=== PATIENT | female | born 1975 | race Caucasian/White ===

== ENCOUNTER 2020-12-08 08:49 | Emergency (ER) | payer BC ==
[~2020-12-08] VITALS: Ht 162.6 cm; Wt 77.1 kg
[2020-12-08 09:00] VITALS: BP_SYST 124
[2020-12-08] MEDS ORDERED: ONDANSETRON 4 MG ODT TAB PO ONE (09:15)
[2020-12-08] MEDS ORDERED: KETOROLAC TROMETHAMINE 60 MG/2 ML VIAL IM ONE (09:15)
[2020-12-08 10:03] LABS: BILIRUBIN,URINE NEGATIVE (NEGATIVE); CLARITY/URINE CLEAR (CLEAR); COLOR,URINE YELLOW (YELLOW); GLUCOSE,URINE NEGATIVE (NEGATIVE); KETONES,URINE TRACE (NEGATIVE); LEUKOCYTE ESTERASE ,URINE NEGATIVE (NEGATIVE); NITRITE, URINE NEGATIVE (NEGATIVE); PROTEIN URINE NEGATIVE (NEGATIVE); UROBILINOGEN,URINE 0.2 (0.2-1.0)
[2020-12-08 10:24] LABS: BLOOD, URINE TRACE (NEGATIVE)
[2020-12-08 10:28] LABS: BACTERIA,URINE None Seen /HPF (None Seen); CALCIUM OXALATE CRYSTALS,UR None Seen /HPF (None Seen); CALCIUM PHOSPHATE CRYSTALS,UR None Seen /HPF (None Seen); RBC,URINE 0-3 /HPF (0-3); TRICHOMONAS,URINE None Seen /HPF (None Seen); WBC,URINE NONE SEEN /HPF (0-3); YEAST,URINE None Seen /HPF (None Seen)
[2020-12-08 10:45] VITALS: BP_SYST 124
[2020-12-08] MEDS ORDERED: NAPR-1172 PO (10:52)
== END 2020-12-08 10:50 | disposition home or self-care (01) ==
LOC: SED 08:49
DX: S39.011A Strain of muscle, fascia and tendon of abdomen, initial encounter (principal); X58.XXXA Exposure to other specified factors, initial encounter; Y93.89 Activity, other specified; Y92.89 Other specified places as the place of occurrence of the external cause; Y99.8 Other external cause status
CPT/HCPCS: 81000; 96372; 99283; J1885; Q0162

== ENCOUNTER 2022-01-15 12:21 | Emergency (ER) | payer BC ==
[~2022-01-15] VITALS: Ht 162.6 cm; Wt 81.6 kg
[~2022-01-15 12:21] MED LIST: NAPR-1172 PO
[2022-01-15 12:22] VITALS: BP_SYST 149
--- NOTE | 2022-01-15 12:22 | NUR ---
Placed in room 2 . Placed on ekg monitor, blood pressure machine and pulse oximeter. To gown for exam. Side rails up. Report given to RANDOLPH SIMENTAL.
--- NOTE | 2022-01-15 12:27 | NUR ---
Patient arrived to ED 2 for Chest pain since saturday afternoon, that is "constant, and feel it more when moving around." Patient describes the chest pain as "someone's thumb pressing on heart." Patient is alert and oriented x4. Respiration even and unlabored. Patient took advil and naproxen yesterday day time over the counter to "see if it would help." Patient drove to hospital by herself. Vital signs stable. Dr. Senoir at bedside to [facility] patient.
[2022-01-15 13:02] LABS: BASOPHILS # (AUTO) 0.1 K/uL (0.0-0.2); EOSINOPHILS # (AUTO) 0.2 K/uL (0.0-0.4); EOSINOPHILS % (AUTO) 2.2 % (0.0-4.0); HEMOGLOBIN 13.5 g/dL (12.0-16.0); LYMPHOCYTES # (AUTO) 2.1 K/uL (1.0-5.5); LYMPHOCYTES % (AUTO) 23.1 % (20.5-51.5); MEAN CORPUSCULAR HEMOGLOBIN 31 pg (27-31); MEAN CORPUSCULAR HGB CONC 34 % (32-36); MEAN CORPUSCULAR VOLUME 91 fL (79.0-98.0); MONOCYTES # (AUTO) 0.6 K/uL (0.0-1.0); MONOCYTES % (AUTO) 6.4 % (1.7-9.3); NEUTROPHILS % (AUTO) 67.3 % (40.0-70.0); PLATELET COUNT (AUTO) 272 K/uL (130-430); RED CELL DISTRIBUTION WIDTH 12.6 % (9.0-15.0); WHITE BLOOD COUNT (AUTO) 8.9 K/uL (4.8-10.8)
[2022-01-15 13:11] LABS: ANION GAP 6 (5-15); CALCIUM 8.4 mg/dL (8.4-11.0); CHLORIDE 100 mmol/L (98-107); CREATININE 0.88 mg/dL (0.55-1.30); GFR AFRICAN AMERICAN 88 mL/min (>90); GLUCOSE 94 mg/dL (70-99); POTASSIUM 4.5 mmol/L (3.5-5.1); SODIUM SERUM 133 mmol/L (136-145); UREA NITROGEN, BLOOD 11 mg/dL (8-21)
[2022-01-15 13:19] LABS: ALANINE AMINOTRANSFERASE 36 U/L (12-78); ALBUMIN 3.7 g/dL (3.4-4.8); ASPARTATE AMINOTRANSFERASE 25 U/L (10-37); TOTAL BILIRUBIN 0.1 mg/dL (0.0-1.0)
[2022-01-15] MEDS ORDERED: IBUP-1969 PO (13:50)
--- NOTE | 2022-01-15 13:56 | NUR ---
Dr. Senior came to see patient.
--- NOTE | 2022-01-15 14:04 | NUR ---
Patient given written and verbal discharge instructions and verbalizes understanding. ER MD discussed with patient the results and treatment provided. Patient in stable condition. ID arm band removed. IV catheter removed intact and dressing applied, no active bleeding. Rx of Motrin given. Patient educated on pain management and to follow up with PMD. Pain Scale . Opportunity for questions provided and answered. Medication side effect fact sheet provided.
[2022-01-15 14:08] VITALS: BP_SYST 124
== END 2022-01-15 14:04 | disposition home or self-care (01) ==
LOC: SED 12:21
DX: R07.2 Precordial pain (principal); Z79.899 Other long term (current) drug therapy
CPT/HCPCS: 36415; 71045; 80053; 84484; 85025; 93005; 99285

== ENCOUNTER 2023-11-11 11:00 | Emergency (ER) | payer BC ==
[~2023-11-11] VITALS: Ht 162.6 cm; Wt 86.2 kg
[~2023-11-11 11:00] MED LIST changes: +IBUP-1969 PO
[2023-11-11 11:08] VITALS: BP_SYST 179; PULSE 85; RESP 18; TEMP 98.3; O2SAT 98
[2023-11-11 11:58] LABS: BASOPHILS # (AUTO) 0.1 K/uL (0.0-0.2); BASOPHILS % (AUTO) 0.9 % (0.0-2.0); EOSINOPHILS # (AUTO) 0.2 K/uL (0.0-0.4); HEMATOCRIT 42.1 % (36-48); HEMOGLOBIN 14.3 g/dL (12.0-16.0); LYMPHOCYTES # (AUTO) 2.5 K/uL (1.0-5.5); LYMPHOCYTES % (AUTO) 25.6 % (20.5-51.5); MEAN CORPUSCULAR HEMOGLOBIN 31 pg (27-31); MEAN CORPUSCULAR HGB CONC 34 % (32-36); MEAN CORPUSCULAR VOLUME 91 fL (79.0-98.0); MONOCYTES # (AUTO) 0.6 K/uL (0.0-1.0); MONOCYTES % (AUTO) 6.4 % (1.7-9.3); NEUTROPHILS # (AUTO) 6.3 K/uL (1.8-7.7); NEUTROPHILS % (AUTO) 65.1 % (40.0-70.0); PLATELET COUNT (AUTO) 331 K/uL (130-430); RED BLOOD CELL COUNT(AUTO) 4.61 MIL/uL (4.2-6.2); RED CELL DISTRIBUTION WIDTH 13.3 % (9.0-15.0); WHITE BLOOD COUNT (AUTO) 9.8 K/uL (4.8-10.8)
[2023-11-11 13:19] LABS: ANION GAP 7 (5-15); CALCIUM 9.1 mg/dL (8.4-11.0); CARBON DIOXIDE 26 mmol/L (23-29); CHLORIDE 103 mmol/L (98-107); CREATININE 0.85 mg/dL (0.55-1.30); GFR AFRICAN AMERICAN 91 mL/min (>90); GLUCOSE 94 mg/dL (74-106); POTASSIUM 4.3 mmol/L (3.5-5.1); SODIUM SERUM 136 mmol/L (136-145); UREA NITROGEN, BLOOD 15 mg/dL (8-21)
[2023-11-11 13:20] LABS: GFR NON AFRICAN-AMERICAN 75 mL/min (>90)
[2023-11-11] MEDS: ASPIRIN 325 MG TABLET PO ONE (13:33)
[2023-11-11] MEDS: NITROGLYCERIN 0.4 MG TAB.SUBL SL ONE (13:33)
[2023-11-11] MEDS ORDERED: ASPI-1393 PO (14:04)
[2023-11-11] MEDS ORDERED: NITSL SL (14:04)
[2023-11-11 20:30] VITALS: BP_SYST 142; PULSE 79; RESP 18; TEMP 98.5; O2SAT 97
== END 2023-11-11 14:12 | disposition home or self-care (01) ==
LOC: SED 11:00
DX: R07.89 Other chest pain (principal); I10 Essential (primary) hypertension; F41.9 Anxiety disorder, unspecified; K21.9 Gastro-esophageal reflux disease without esophagitis; Z90.710 Acquired absence of both cervix and uterus
CPT/HCPCS: 36415; 71045; 80048; 83880; 84484; 85025; 85610; 85730; 93005; 99285